=== PATIENT | female | born 1975 | race Caucasian/White ===

== ENCOUNTER 2020-06-26 08:38 | Emergency (ER) | payer SELFPAY ==
[~2020-06-26] VITALS: Ht 162.6 cm; Wt 110.7 kg
[2020-06-26 08:41] VITALS: BP 132/85
[2020-06-26] MEDS ORDERED: FLUORESCEIN OPHTHALMIC 1 MG STRIP EACHEYE ONE (09:30)
[2020-06-26] MEDS ORDERED: PROPARACAINE OPHTH 0.5%, 15ML EACHEYE ONE (09:30)
[2020-06-26] MEDS ORDERED: PROPARACAINE OPHTH 0.5%, 15ML ONE (10:01)
[2020-06-26] MEDS ORDERED: FLUORESCEIN OPHTHALMIC 1 MG STRIP ONE (10:01)
--- NOTE | 2020-06-26 10:40 | NUR ---
Patient given discharge instructions and they have confirmed that they understand the instructions. Patient ambulatory with steady gait.
== END 2020-06-26 10:41 | disposition home or self-care (01) ==
LOC: ED 09:26
DX: H10.023 Other mucopurulent conjunctivitis, bilateral (principal)
CPT/HCPCS: 99283